=== PATIENT | female | born 1985 | race American Indian/Alaskan Native ===

== ENCOUNTER 2018-01-14 06:14 | Day surgery (SDC) | payer MEDICAID ==
[~2018-01-14 06:14] MED LIST: NACL 0.9% 1000 ML 1,000 ML IV SCH
[2018-01-14] MEDS ORDERED: XYLOCAINE 1% 20 mL ONE (07:47)
[2018-01-14] MEDS ORDERED: DIPRIVAN 10 MG/ML IV ONE (07:47)
[2018-01-14] MEDS ORDERED: HURRICAINE ONE 20% TOPICAL SPRAY MM (08:06)
--- NOTE | 2018-01-14 08:24 | Operative Report ---
Operative Report Operative Report: OPERATIVE REPORT - EGD DATE 01/14/18 SURGERY: Upper endoscopy. SURGEON: Dr. Lea WELLNESS CONSULTANT: Christi Feliciano D.O PRE OP DX: dyspepsia , morbid obesity POST OP DX: Hiatal hernia, gastric ulcers TYPE OF ANESTHESIA: MAC. ESTIMATED BLOOD LOSS: None. COMPLICATIONS: None. SPECIMENS REMOVED: None. FINDINGS: 1. Small hiatal hernia. 2. Otherwise, normal esophagus, and first portion of duodenum. 3. 2 Gastric ulcers: Antrum INDICATIONS:INDICATION FOR PROCEDURE: Patient is a 32-year-old female with a long history of morbid obesity. She is planned to have a weight loss procedure and is here for preoperative planning EGD. PROCEDURE DETAILS: After consent was reviewed, patient was taken back to the operating room where patient was placed in the left lateral decubitus position and a bite block was placed in the mouth. After a time-out was called, MAC anesthesia was initiated. I then passed the endoscope into her oropharynx, into her esophagus, visualized the entire esophagus, which was all within normal limits. I then visualized the stomach and noted 2 gastric ulcers - very small areas of erythema with a white base. The first portion of the duodenum was visualized and there were no abnormalities I could clearly visualize. I then retroflexed the scope in the stomach and visualized the hiatus and I could see a hiatal hernia. I then desufflated the stomach and removed the endoscope. Patient tolerated procedure well and was transferred to recovery room in good and stable condition. Omeprazole will be e-scripted to her pharmacy.
--- NOTE | 2018-01-14 08:26 | Discharge Summary ---
Providers - Providers Attending physician: NEVA CORNEJO Primary care physician: MAGDA SINGH Hospitalization Hospital course: 32 y.o. F presented to endoscopy for EGD. She tolerated the procedure well. Gastric ulcers and a hiatal hernia were noted. Omeprazole will be e scripted to her pharm. Disposition: - TO HOME OR SELFCARE Core Measure Documentation - Palliative Care Palliative Care/ Comfort Measures: Not Applicable - Core Measures Any of the following diagnoses?: none Exam - Physical Exam Narrative exam: no change from prior - Constitutional Vitals: Temp Pulse Resp BP Pulse Ox 98.1 F 73 10 L 113/55 99 01/14/18 07:56 01/14/18 07:56 01/14/18 07:56 01/14/18 07:56 01/14/18 07:56 Plan Follow up with: MAGDA SINGH MD [Primary Care Provider] - 7 Days
[2018-01-14 08:52] VITALS: BP 115/76
--- NOTE | 2018-01-14 09:10 | Anesthesia Consultation ---
Anesthesia Consult and Med Hx Date of service: 01/14/18 - Airway Anesthetic Teeth Evaluation: Good ROM Head & Neck: Adequate Mental/Hyoid Distance: Adequate Mallampati Class: Class II Intubation Access Assessment: Probably Good - Pulmonary Exam CTA: Yes - Cardiac Exam Cardiac Exam: RRR - Pre-Operative Health Status ASA Pre-Surgery Classification: ASA2 Proposed Anesthetic Plan: MAC - Other Systems Hx Obesity: Yes
--- NOTE | 2018-01-14 09:10 | Anesthesia Day of Surgery ---
Anesthesia Day of Surgery - Day of Surgery Patient Examined: Yes Patient H&P Reviewed: Yes Patient is NPO: Yes
[2018-01-14] MEDS ORDERED: HURRICAINE ONE 20% TOPICAL SPRAY MM NR (11:00)
[2018-01-14] MEDS ORDERED: WATER FOR IRRIG STERILE IR ONE (15:57)
== END 2018-01-14 06:15 | disposition home or self-care (01) ==
LOC: GIO 06:14
PROVIDERS: ATTEND Specialist
DX: K25.9 Gastric ulcer, unspecified as acute or chronic, without hemorrhage or perforation (principal); K44.9 Diaphragmatic hernia without obstruction or gangrene; N39.3 Stress incontinence (female) (male); E66.01 Morbid (severe) obesity due to excess calories; Z68.43 Body mass index [BMI] 50.0-59.9, adult; Z98.890 Other specified postprocedural states; Z88.0 Allergy status to penicillin
CPT/HCPCS: 43235; 81025; J2704; J7030